=== PATIENT | male | born 1985 ===

== ENCOUNTER 2018-07-23 13:56 | Emergency (ER) | payer MEDICAID ==
[2018-07-23 13:58] VITALS: BMI 29.6
[2018-07-23 14:00] VITALS: BP 147/80; PULSE 79; RESP 17; TEMP 98; O2SAT 96
[2018-07-23] MEDS ORDERED: cefTRIAXone (Rocephin) 250 mg Inj IM ONE (14:10)
[2018-07-23 14:46] LABS: SQUAMOUS EPITHIAL 1 /hpf (0-5); URINE BILIRUBIN NEGATIVE (NEGATIVE); URINE BLOOD SMALL (NEGATIVE); URINE CLARITY SLIGHTY-CLOUDY (Clear); URINE COLOR YELLOW (YELLOW); URINE GLUCOSE (UA) NEG (NEGATIVE); URINE LEUKOCYTE ESTERASE MOD Leu/uL (Negative); URINE PROTEIN NEGATIVE (NEGATIVE); URINE UROBILINOGEN 0.2-1.0 mg/dL (0.2-1.0)
[2018-07-23] MEDS ORDERED: cefTRIAXone (Rocephin) 250 mg Inj ONE (14:57)
--- NOTE | 2018-07-23 14:58 | ED PDOC ---
HPI: Male Pain Time Seen by Provider: 07/23/18 14:06 Chief Complaint (Nursing): Male Genitourinary Chief Complaint (Provider): Male Genitourinary History Per: Patient History/Exam Limitations: no limitations Onset/Duration Of Symptoms: Days (2x weeks) Associated Symptoms: Urinary Symptoms (hematuria and dysuria) Additional Complaint(s): 33 year old male with no past medical history presents to the ED for an evaluation of STD exposure. Patient reports that he has been experiencing hematuria and dysuria for the past 2x weeks. Patient's significant other recently tested positive with chlamydia, gonorrhea, and trichomoniasis on 07/18/2018. Otherwise: (-) other complaints, (-) fevers, (-) testicular pain, (-) abdominal pain, (-) nausea, (-) vomiting, (-) diarrhea, (+) history of STDs (-) penile ulcerations/rash. PMD: None Past Medical History Reviewed: Historical Data, Nursing Documentation, Vital Signs Vital Signs: Last Vital Signs Temp 98 F 07/23/18 13:59 Pulse 79 07/23/18 13:59 Resp 17 07/23/18 13:59 BP 147/80 07/23/18 13:59 Pulse Ox 96 07/23/18 13:59 [place] Report Viewed: Yes - Medical History PMH: No Chronic Diseases Denies: Asthma (denies on 07/23/2018) - Surgical History Surgical History: No Surg Hx - Family History Family History: States: No Known Family Hx - Social History Current smoker - smoking cessation education provided: Yes Alcohol: Other (yes) Drugs: Denies - Home Medications Home Medications: Ambulatory Orders Medication Instructions Recorded Nitrofurantoin Macrocrystals 100 mg PO BID #14 cap 06/27/18 [Macrobid] Ciprofloxacin [Cipro] 1 tab PO BID #14 tab 07/18/18 - Allergies Allergies/Adverse Reactions: Allergies Allergy/AdvReac Type Severity Reaction Status Date / Time No Known Allergies Allergy Verified 07/23/18 13:58 Review of Systems ROS Statement: Except As Marked, All Systems Reviewed And Found Negative Constitutional: Negative for: Fever Gastrointestinal: Negative for: Nausea, Vomiting, Abdominal Pain, Diarrhea Genitourinary Male: Positive for: Dysuria, Hematuria. Negative for: Other (testicular pain) Physical Exam - Reviewed Nursing Documentation Reviewed: Yes Vital Signs Reviewed: Yes - Physical Exam Comments: GENERAL APPEARANCE: Patient is awake, alert, oriented x 3, in no acute distress. SKIN: Warm, dry; (-) cyanosis. ENMT: Mucous membranes moist. NECK: Supple CHEST AND RESPIRATORY: (-) rales, (-) rhonchi, (-) wheezes; breath sounds equal bilaterally. Respirations nonlabored. HEART AND CARDIOVASCULAR: (-) irregularity ABDOMEN AND GI: Soft (-) distention. Bowel sounds active x4 (-) tenderness, (-) guarding, (-) rebound, (-) palpable masses, (-) CVA tenderness. EXTREMITIES: (-) deformity NEURO AND PSYCH: Mental status as above; (-) focal findings. Gait: steady. Speech: clear. (-) facial asymmetry - Laboratory Results Lab Results: Urine Color Yellow (YELLOW) 07/23/18 14:20 Urine Clarity Slighty-cloudy (Clear) 07/23/18 14:20 Urine pH 5.0 (5.0-8.0) 07/23/18 14:20 Ur Specific [place] 1.028 (1.003-1.030) 07/23/18 14:20 Urine Protein Negative mg/dL (NEGATIVE) 07/23/18 14:20 Urine Glucose (UA) Neg mg/dL (NEGATIVE) 07/23/18 14:20 Urine Ketones Negative mg/dL (NEGATIVE) 07/23/18 14:20 Urine Blood Small (NEGATIVE) 07/23/18 14:20 Urine Nitrate Negative (NEGATIVE) 07/23/18 14:20 Urine Bilirubin Negative (NEGATIVE) 07/23/18 14:20 Urine Urobilinogen 0.2-1.0 mg/dL (0.2-1.0) 07/23/18 14:20 Ur Leukocyte Esterase Mod Tom/uL (Negative) 07/23/18 14:20 Urine RBC (Auto) 9 /hpf (0-3) H 07/23/18 14:20 Urine Microscopic WBC 48 /hpf (0-5) H 07/23/18 14:20 Ur Squamous Epith Cells 1 /hpf (0-5) 07/23/18 14:20 - ECG O2 Sat by Pulse Oximetry: 96 (RA) Pulse Ox Interpretation: Normal Medical Decision Making Medical Decision Makin:10 Clinical impression: 33 year old male with STD exposure and urethritis. Initial plan: * chlamydia * urine culture * urinalysis * flagyl 2,000 mg PO * rocephin 250 mg IM once * zithromax 1,000 mg PO once * reevaluation 1510 On re-evaluation, patient reports improvement of symptoms. On exam, patient remains AAOx3, in no acute distress. Vitals stable. Lab/Diagnostic results d/w the patient in great detail. Diagnosis of urethritis, STD exposure d/w the patient. Based on history, exam and diagnostic results, plan will be for outpatient follow up with clinic. Patient instructed to follow-up with pmd / referral provided / the clinic in 1- 2 days without fail. Return to the emergency room at any time for any new or worsening symptoms. Patient states he fully agrees with and understands discharge instructions. States that he agrees with the plan and disposition. Verbalized and repeated discharge instructions and plan. I have given the patient opportunity to ask any additional questions. Scribe Attestation: Documented byHilary Jenkins, acting as a scribe for Hilary Lr Provider Scribe Attestation: All medical record entries made by the Scribe were at my direction and personally dictated by me. I have reviewed the chart and agree that the record accurately reflects my personal performance of the history, physical exam, medical decision making, and the department course for this patient. I have also personally directed, reviewed, and agree with the discharge instructions and disposition. Disposition - Clinical Impression Clinical Impression: STD exposure, Urethritis - Patient ED Disposition Is Patient to be Admitted: No Counseled Patient/Family Regarding: Studies Performed, Diagnosis, Need For Followup, Rx Given - Disposition Referrals: [facility] [Outside] Disposition: Routine/Home Disposition Time: 15:10 Condition: STABLE Additional Instructions: PLEASE REFRAIN FROM SEXUAL ACTIVITY X2 WEEKS. The emergency medical care you received today was directed at your acute symptoms. If you were prescribed any medication, please fill it and take as directed. It may take several days for your symptoms to resolve. Return to the Emergency Department if your symptoms worsen, do not improve, or if you have any other problems. Please contact your doctor in 2 days for re-evaluation and follow up / or call one of the physicians/clinics you have been referred to that are listed on the Patient Visit Information form that is included in your discharge packet. Bring any paperwork you were given at discharge with you along with any medications you are taking to your follow up visit. Our treatment cannot replace ongoing medical care by a primary care provider (PCP) outside of the emergency department. Instructions: Urethritis, Trichomoniasis, Chlamydia and Gonorrhea, Screening for Sexually Transmitted Infections, Sexually-Transmitted Diseases, STD Prevention Forms: [employer] (Panamanian) Print Language: CAMEROONIAN - POA Present On Arrival: None Results - Lab Results Lab Results: 07/23/18 14:20 Urine Color Yellow Urine Clarity Slighty-cloudy Urine pH 5.0 Ur Specific [place] 1.028 Urine Protein Negative Urine Glucose (UA) Neg Urine Ketones Negative Urine Blood Small Urine Nitrate Negative Urine Bilirubin Negative Urine Urobilinogen 0.2-1.0 Ur Leukocyte Esterase Mod Urine RBC (Auto) 9 H Urine Microscopic WBC 48 H Ur Squamous Epith Cells 1
== END 2018-07-23 15:23 | disposition home or self-care (01) ==
LOC: H.ER 13:56
DX: N34.2 Other urethritis (principal); Z20.2 Contact with and (suspected) exposure to infections with a predominantly sexual mode of transmission
CPT/HCPCS: 81003; 87086; 87491; 87591; 96372; 99283; J0696

== ENCOUNTER 2018-09-22 15:23 | Emergency (ER) | payer MEDICAID ==
[2018-09-22 15:23] VITALS: BMI 29.6
[2018-09-22 15:31] VITALS: BP 125/70; PULSE 74; RESP 19; TEMP 98.6; O2SAT 100
[2018-09-22] MEDS ORDERED: Clindamycin ORAL SUSP 75 MG/5 ML PO STA (16:18)
--- NOTE | 2018-09-22 16:51 | ED PDOC ---
HPI: Dental Pain/Injury Time Seen by Provider: 09/22/18 15:41 Chief Complaint (Nursing): Dental Pain Chief Complaint (Provider): Dental Pain History Per: Patient History/Exam Limitations: no limitations Onset/Duration Of Symptoms: Days (x1) Current Symptoms Are (Timing): Still Present Additional Complaint(s): Patient is a 33 y/o male with no significant PMH who presents to the ED for evaluation of left-sided tooth as well as left cheek swelling and pain onset yesterday. Patient reports recurrent abscesses in his second left molar due to the need for a root canal which he has been unable to have completed because of his insurance. (which is now active). Patient states he took Aleve for relief of his symptoms last night and was able to sleep. However, this morning the patient woke up with worsening pain and swelling. Patient denies fever, chills, and ear pain. Patient has not taken any medication today. PCP: None Provided Past Medical History Reviewed: Historical Data, Nursing Documentation, Vital Signs Vital Signs: Last Vital Signs Temp 98.6 F 09/22/18 15:26 Pulse 74 09/22/18 15:26 Resp 19 09/22/18 15:26 BP 125/70 09/22/18 15:26 Pulse Ox 100 09/22/18 15:26 - Medical History PMH: Sexually Transmitted Disease Denies: Asthma (denies on 07/23/2018), Chronic Kidney Disease - Surgical History Surgical History: No Surg Hx - Family History Family History: States: Unknown Family Hx - Immunization History Hx Tetanus Toxoid Vaccination: No Hx Influenza Vaccination: No Hx Pneumococcal Vaccination: No - Home Medications Home Medications: Ambulatory Orders Medication Instructions Recorded Nitrofurantoin Macrocrystals 100 mg PO BID #14 cap 06/27/18 [Macrobid] Ciprofloxacin [Cipro] 1 tab PO BID #14 tab 07/18/18 Clindamycin [Cleocin] 450 mg PO TID #20 cap 09/22/18 Ibuprofen [Motrin Tab] 800 mg PO Q6 PRN 7 Days tab 09/22/18 - Allergies Allergies/Adverse Reactions: Allergies Allergy/AdvReac Type Severity Reaction Status Date / Time amoxicillin [From Amoxil] Allergy RASH Verified 09/22/18 15:31 Review of Systems ROS Statement: Except As Marked, All Systems Reviewed And Found Negative Constitutional: Negative for: Fever, Chills ENT: Positive for: Other (left-sided tooth pain and mild left cheek swelling/pain). Negative for: Ear Pain Physical Exam - Reviewed Nursing Documentation Reviewed: Yes Vital Signs Reviewed: Yes - Physical Exam Appears: Positive for: Uncomfortable Head Exam: Positive for: ATRAUMATIC, NORMAL INSPECTION, NORMOCEPHALIC ENT: Positive for: Normal ENT Inspection (Gum swelling at the left second maxillary molar; Edematous left maxilla; Postive tenderness to palpation of left maxilla; No drainage noted), TM Is/Are (normal bilaterally). Negative for: Pharyngeal Erythema, Tonsillar Exudate, Tonsillar Swelling, Other (Pain on Palpation of Mastoid Bone) - ECG O2 Sat by Pulse Oximetry: 100 (RA) Pulse Ox Interpretation: Normal Medical Decision Making Medical Decision Making: Time: 1616 Impression: Dental Abscess Plan: - Clindamycin 450 mg PO - Toradol 30 mg IM Time: 1644 Patient strongly encouraged to followup with dentist tomorrow and to take Tylenol and Ibuprofen for relief. Scribe Attestation: Documented by Mason Mejia, acting as a scribe for GAIL Huffman Provider Scribe Attestation: All medical record entries made by the Scribe were at my direction and personally dictated by me. I have reviewed the chart and agree that the record accurately reflects my personal performance of the history, physical exam, medical decision making, and the department course for this patient. I have also personally directed, reviewed, and agree with the discharge instructions and disposition. Disposition - Clinical Impression Clinical Impression: Dental abscess - Patient ED Disposition Is Patient to be Admitted: No Counseled Patient/Family Regarding: Studies Performed, Diagnosis, Need For Followup, Rx Given - Disposition Disposition: Routine/Home Disposition Time: 16:45 Condition: STABLE Additional Instructions: Follow up with your dentist tomorrow. Take Tylenol alternating with Ibuprofen for the pain. Take full course of antibiotic as prescribed. Prescriptions: Clindamycin [Cleocin] 450 mg PO TID #20 cap Ibuprofen [Motrin Tab] 800 mg PO Q6 PRN 7 Days tab PRN Reason: Pain, Moderate (4-7) Instructions: Tooth Abscess (DC) Forms: [facility] (Mohawk) Print Language: THAI
== END 2018-09-22 16:50 | disposition home or self-care (01) ==
LOC: H.ER 15:23
DX: K04.7 Periapical abscess without sinus (principal); Z88.0 Allergy status to penicillin
CPT/HCPCS: 96372; 99282; J1885